=== PATIENT | female | born 1965 | race African-American/Black ===

== ENCOUNTER 2016-12-01 20:32 | Emergency (ER) | payer OTHER ==
[~2016-12-01] VITALS: Ht 170.2 cm; Wt 135.2 kg
[~2016-12-01 20:32] MED LIST: AMOXICILLIN500 MG ORAL; IBUPROFEN600 MG ORAL; MEDROL DOSEPAK4 MG ORAL; NORCO 5-325 TA1 EACH ORAL; PERCOCET 5-3251 EACH ORAL; PERIDEX 0.12% O16 OZ ORAL; [UNRECOGNIZED DRUG - REMARK]
[2016-12-01 21:12] VITALS: BP 196/86
[2016-12-01] MEDS ORDERED: HYDROmorphone 1mg/ml Carpuject IM ONE (21:15)
--- NOTE | 2016-12-01 21:18 | Emergency Room Report ---
History of Present Illness General Chief Complaint: General Complaint Source: Patient Present Illness HPI Is a 51-year-old female with history hypertension. She was driving here from the dentist office because I blood pressure. She is currently on Norvasc 5 mg a day. This was switched recently about 2 months ago because she cannot tolerate the other medication. She had an infected right upper wisdom tooth. Prior to tooth extraction blood pressure systolic was 161. After the extraction her blood pressure went up to 200. She complaining of pain. Denies any fever chills denies any nausea vomiting. No headache. No vision changes. The dentist wanted to call 911 but she refused. The executive secretary brought her here. Allergies: Coded Allergies: No Known Allergies (Unverified , 01/15/14) Patient History Past Medical History: see triage record, old chart reviewed, HTN Past Surgical History: other Pertinent Family History: none Social History: Denies: smoking Now: No Immunizations: other Reviewed Nursing Documentation: PMH: Agreed, PSxH: Agreed Nursing Documentation-PMH Hx Hypertension: Yes Review of Systems Eye: Denies: eye pain, blurred vision ENT: Denies: ear pain, nose congestion, throat swelling Respiratory: Denies: cough, shortness of breath Cardiovascular: Denies: chest pain, palpitations Gastrointestinal: Denies: abdominal pain, diarrhea, nausea, vomiting Musculoskeletal: Denies: back pain, joint pain Skin: Denies: rash Neurological: Denies: headache, numbness Endocrine: Denies: increased thirst, increased urine Hematologic/Lymphatic: Denies: easy bruising All Other Systems: negative except mentioned in HPI Physical Exam Vital Signs Date Time Temp Pulse Resp B/P (MAP) Pulse Ox O2 Delivery O2 Flow Rate FiO2 12/01/16 20:59 98.8 88 16 196/120 99 Room Air vitals with hypertension Sp02 EP Interpretation: reviewed, normal General Appearance: well appearing, no apparent distress, alert Head: normocephalic, atraumatic Eyes: bilateral eye PERRL, bilateral eye EOMI ENT: hearing grossly normal, normal pharynx Neck: full range of motion, supple, no meningismus Respiratory: chest non-tender, lungs clear, normal breath sounds Cardiovascular #1: regular rate, rhythm, no murmur Gastrointestinal: normal bowel sounds, non tender, no mass, no organomegaly, no bruit, non-distended Musculoskeletal: back normal, gait/station normal, normal range of motion Psychiatric: mood/affect normal Skin: warm/dry Medical Decision Making Diagnostic Impression: Primary Impression: Hypertension Qualified Codes: I10 - Essential (primary) hypertension Additional Impression: Morbid obesity with BMI of 45.0-49.9, adult ER Course Patient was high blood pressure. No evidence of endorgan damage. We'll discharge home. I will increase her Norvasc to 10 mg a day. Last Vital Signs Date Time Temp Pulse Resp B/P (MAP) Pulse Ox O2 Delivery O2 Flow Rate FiO2 12/01/16 21:12 196/86 12/01/16 20:59 98.8 88 16 99 Room Air Status: improved Disposition: HOME, SELF-CARE Condition: Stable Scripts Amlodipine Besylate (Norvasc) 10 Mg Tablet 10 MG ORAL DAILY, #30 TAB Prov: YULIANA PAGAN M.D. 12/01/16 Additional Instructions: Followup your doctor in a week for recheck on your blood pressure. Return if symptom worsen. YULIANA PAGAN M.D. Dec 01, 2016 21:18
[2016-12-01] MEDS ORDERED: NORVASC10 MG ORAL (22:11)
[2016-12-01 22:40] VITALS: BP 186/96
== END 2016-12-01 22:40 | disposition home or self-care (01) ==
LOC: EMR 21:22
DX: I10 Essential (primary) hypertension (principal); E66.01 Morbid (severe) obesity due to excess calories
CPT/HCPCS: 96372; 99283; J1170

== ENCOUNTER 2017-05-01 11:23 | Emergency (ER) | payer OTHER ==
[~2017-05-01] VITALS: Ht 170.2 cm; Wt 126.6 kg
[~2017-05-01 11:23] MED LIST changes: +NORVASC10 MG ORAL
[2017-05-01] MEDS ORDERED: LORazepam Inj 2mg/ml 1ml IV ONE (11:45)
[2017-05-01] MEDS ORDERED: Morphine Sulfate 4mg/ml Inj IVP ONE (11:45)
[2017-05-01 12:00] VITALS: BP 150/90
[2017-05-01 12:06] LABS: BASOPHILS % (AUTO) 0.8 % (0.0-2.0); EOSINOPHILS % (AUTO) 1.9 % (0.0-3.0); HEMATOCRIT 32.1 % (37.0-47.0); HEMOGLOBIN 9.2 G/DL (12.0-16.0); LYMPHOCYTES % (AUTO) 17.7 % (20.0-45.0); MEAN CORPUSCULAR VOLUME 77 FL (80-99); MONOCYTES % (AUTO) 6.7 % (1.0-10.0); PLATELET COUNT 263 K/UL (150-450); RED BLOOD COUNT 4.17 M/UL (4.20-5.40); RED CELL DISTRIBUTION WIDTH 19.3 % (11.6-14.8); WHITE BLOOD COUNT 10.7 K/UL (4.8-10.8)
[2017-05-01 12:22] LABS: ANION GAP 12 mmol/L (5-15); BLOOD UREA NITROGEN 7 mg/dL (7-18); CALCIUM 8.9 MG/DL (8.5-10.1); CARBON DIOXIDE 23 MMOL/L (21-32); CHLORIDE 106 MMOL/L (98-107); CREATININE 0.9 MG/DL (0.55-1.30); POTASSIUM 3.6 MMOL/L (3.5-5.1); SODIUM 140 MMOL/L (136-145)
[2017-05-01 12:25] LABS: INR 0.9 (0.9-1.1)
[2017-05-01 12:33] LABS: ALANINE AMINOTRANSFERASE 16 U/L (12-78); ALBUMIN 3.1 G/DL (3.4-5.0); ALBUMIN/GLOBULIN RATIO 0.8 (1.0-2.7); ALKALINE PHOSPHATASE 54 U/L (46-116); ASPARTATE AMINO TRANSFERASE 13 U/L (15-37); BILIRUBIN,TOTAL 0.5 MG/DL (0.2-1.0); CREATINE KINASE 161 U/L (26-308)
--- NOTE | 2017-05-01 13:57 | Emergency Room Report ---
History of Present Illness General Chief Complaint: Chest Pain Source: Patient, Friend Present Illness HPI The patient presents with substernal chest pressure. Started this morning. Woke her up at 4 AM. This has been severe. She had taken sudafed before. Then she applied Vicks Vaporub and then started to vomit. No coffee grounds or blood. Pressure in her chest has persisted. She was treated recently for vertigo. She was improved with meclizine. She has some nausea associated with that. On Sunday she had some flank pain and treated herself with muscle relaxant. There's been no anti-inflammatories used she has problems with bleeding from those. The patient has had no cardiac workup in the past. Sore throat. Risk factors: HTN, no DM, smoke, fam hx. No prior asthma, but has been coughing, non-productive. Allergies: Coded Allergies: No Known Allergies (Unverified , 01/15/14) Patient History Past Medical History: see triage record Social History: Denies: smoking, drug use Social History Narrative with friend Reviewed Nursing Documentation: PMH: Agreed, PSxH: Agreed Nursing Documentation-PMH Hx Hypertension: Yes Review of Systems All Other Systems: negative except mentioned in HPI Physical Exam Vital Signs Date Time Temp Pulse Resp B/P (MAP) Pulse Ox O2 Delivery O2 Flow Rate FiO2 05/01/17 11:25 98.1 109 20 182/112 99 Room Air Sp02 EP Interpretation: reviewed, normal General Appearance: well appearing, GCS 15, mild distress, obese Head: normocephalic, atraumatic Eyes: bilateral eye normal inspection, bilateral eye PERRL ENT: TMs + canals normal, moist mucus membranes, pharyngeal erythema Neck: supple Respiratory: lungs clear, normal breath sounds Cardiovascular #1: regular rate, rhythm Cardiovascular #2: 2+ radial (R) Gastrointestinal: normal inspection, normal bowel sounds, non tender, no mass, non-distended, overweight Musculoskeletal: back normal, gait/station normal, normal range of motion, no calf tenderness Neurologic: alert, oriented x3, grossly normal Psychiatric: anxious Skin: normal inspection, warm/dry Medical Decision Making Diagnostic Impression: Primary Impression: Chest pain Qualified Codes: R07.9 - Chest pain, unspecified Additional Impressions: Vertigo Viral URI ER Course Patient presents with substernal chest pressure. Differential includes acute myocardial infarction acute coronary syndrome, GERD, gastritis, chest wall pain amongst others. Evaluation with EKG, chest x-ray and labs. The patient be treated with aspirin, Pepcid and morphine. Based on exam and VS, PE doubted. EKG shows no acute change and no injury. Chest x-ray shows no infiltrate. Labs are significant for negative troponin. The patient is greatly improved with treatment, however because of the nature of the pain she needs to be admitted for repeat troponin levels and rule out for acute coronary syndrome. Calling Dr. Bermudez. Accepts patient in transfer. Patient with post tussive wheezes. Albuterol given with some improvement. Serious but stable for transfer. Laboratory Tests Test 05/01/17 11:51 White Blood Count 10.7 K/UL (4.8-10.8) Red Blood Count 4.17 M/UL (4.20-5.40) L Hemoglobin 9.2 G/DL (12.0-16.0) L Hematocrit 32.1 % (37.0-47.0) L Mean Corpuscular Volume 77 FL (80-99) L Mean Corpuscular Hemoglobin 22.2 PG (27.0-31.0) L Mean Corpuscular Hemoglobin Concent 28.8 G/DL (32.0-36.0) L Red Cell Distribution Width 19.3 % (11.6-14.8) H Platelet Count 263 K/UL (150-450) Mean Platelet Volume 6.7 FL (6.5-10.1) Neutrophils (%) (Auto) 73.0 % (45.0-75.0) Lymphocytes (%) (Auto) 17.7 % (20.0-45.0) L Monocytes (%) (Auto) 6.7 % (1.0-10.0) Eosinophils (%) (Auto) 1.9 % (0.0-3.0) Basophils (%) (Auto) 0.8 % (0.0-2.0) Prothrombin Time 9.8 SEC (9.30-11.50) Prothrombin Time INR 0.9 (0.9-1.1) PTT 28 SEC (23-33) Sodium Level 140 MMOL/L (136-145) Potassium Level 3.6 MMOL/L (3.5-5.1) Chloride Level 106 MMOL/L (98-107) Carbon Dioxide Level 23 MMOL/L (21-32) Anion Gap 12 mmol/L (5-15) Blood Urea Nitrogen 7 mg/dL (7-18) Creatinine 0.9 MG/DL (0.55-1.30) Estimate Glomerular Filtration Rate > 60 mL/min (>60) Glucose Level 112 MG/DL (74-106) H Calcium Level 8.9 MG/DL (8.5-10.1) Total Bilirubin 0.5 MG/DL (0.2-1.0) Aspartate Amino Transferase (AST) 13 U/L (15-37) L Alanine Aminotransferase (ALT) 16 U/L (12-78) Alkaline Phosphatase 54 U/L (46-116) Total Creatine Kinase 161 U/L (26-308) Troponin I 0.000 ng/mL (0.000-0.056) Pro-B-Type Natriuretic Peptide 72 pg/mL (0-125) Total Protein 7.2 G/DL (6.4-8.2) Albumin 3.1 G/DL (3.4-5.0) L Globulin 4.1 g/dL Albumin/Globulin Ratio 0.8 (1.0-2.7) L EKG Diagnostic Results Rate: normal Rhythm: NSR ST Segments: no acute changes Rhythm Strip Diag. Results EP Interpretation: yes Rhythm: NSR, no PVC's, no ectopy Chest X-Ray Diagnostic Results Chest X-Ray Diagnostic Results : Chest X-Ray Ordered: Yes # of Views/Limited/Complete: 1 View Indication: Chest Pain EP Interpretation: Yes Interpretation: no consolidation, no effusion, no pneumothorax, other - inc cor Impression: Other Electronically Signed by: Electronically signed by Bryan Vaca MD Last Vital Signs Date Time Temp Pulse Resp B/P (MAP) Pulse Ox O2 Delivery O2 Flow Rate FiO2 05/01/17 18:30 86 16 143/86 98 Room Air 05/01/17 18:29 98.7 Status: improved Disposition: XFER SHT-TRM HOSP Condition: Serious - but stable for transfer Referrals: [facility]ERR[facility] (PCP) Bryan Vaca M.D. May 01, 2017 13:57
[2017-05-01 14:00] VITALS: BP 147/92
[2017-05-01] MEDS ORDERED: Albuterol ud Inhalation HHN ONE (14:00)
--- NOTE | 2017-05-01 14:15 | Diagnostic Imaging Report ---
Indication: Chest pain, shortness of breath Technique: One view of the chest Comparison: none Findings: Lungs and pleural spaces are clear. The heart is enlarged. The aorta is tortuous Impression: Cardiomegaly No acute process
[2017-05-01 15:53] VITALS: BP 147/92
[2017-05-01 16:15] LABS: APPEARANCE,URINE CLEAR; BILIRUBIN, URINE NEGATIVE (NEGATIVE); GLUCOSE, URINE (UA) NEGATIVE (NEGATIVE); KETONES,URINE NEGATIVE (NEGATIVE); LEUKOCYTE ESTERASE ,URINE NEGATIVE (NEGATIVE); NITRITE,URINE NEGATIVE (NEGATIVE); PH,URINE 6 (4.5-8.0); PROTEIN,URINE NEGATIVE (NEGATIVE); UROBILINOGEN,URINE NORMAL MG/DL (0.0-1.0)
[2017-05-01 16:16] LABS: COLOR,URINE YELLOW
[2017-05-01 18:29] VITALS: BP 143/86
[2017-05-01 18:30] VITALS: BP 143/86
[2017-05-01] MEDS ORDERED: MECLIZINE HCL25 MG ORAL (18:39)
[2017-05-01] MEDS ORDERED: VITAMIN D250000 UNI1 ORAL (18:39)
[2017-05-01] MEDS ORDERED: CYCLOBENZAPRINE10 MG ORAL (18:39)
[2017-05-01] MEDS ORDERED: VERAPAMIL ER120 MG PO (18:39)
[2017-05-01] MEDS ORDERED: FLUTICASONE PRO16 G1 NASAL (18:39)
[2017-05-01] MEDS ORDERED: ZYRTEC10 MG ORAL (18:39)
[2017-05-01] MEDS ORDERED: DOCUSATE SODIU250 MG ORAL (18:39)
[2017-05-01] MEDS ORDERED: ACETAMINOPHEN-1 EAC1 ORAL (18:39)
[2017-05-01] MEDS ORDERED: LISINOPRIL20 MG ORAL (18:39)
[2017-05-01] MEDS ORDERED: PSEUDOEPHEDRINE30 MG PO (18:39)
[2017-05-01] MEDS ORDERED: FERROUS SULFAT325 MG ORAL (18:39)
--- NOTE | 2017-05-02 19:02 | Cardiology Report ---
APPROVED REPORT EKG Measurement Heart [id number] Normal sinus rhythm Normal ECG
== END 2017-05-01 18:33 | disposition short-term general hospital (02) ==
LOC: EMR 12:18
DX: R07.9 Chest pain, unspecified (principal); R42 Dizziness and giddiness; J06.9 Acute upper respiratory infection, unspecified; B97.89 Other viral agents as the cause of diseases classified elsewhere; I10 Essential (primary) hypertension
CPT/HCPCS: 36415; 71045; 80053; 80307; 81003; 82550; 83880; 84484; 85025; 85610; 85730; 93005; 94640; 94664; 96374; 96375; 99285; J2270; J2405; S0028

== ENCOUNTER 2018-12-30 18:36 | Emergency (ER) | payer OTHER ==
[~2018-12-30] VITALS: Ht 167.6 cm; Wt 122.5 kg
[~2018-12-30 18:36] MED LIST changes: +ACETAMINOPHEN-1 EAC1 ORAL; +CYCLOBENZAPRINE10 MG ORAL; +DOCUSATE SODIU250 MG ORAL; +FERROUS SULFAT325 MG ORAL; +FLUTICASONE PRO16 G1 NASAL; +LISINOPRIL20 MG ORAL; +MECLIZINE HCL25 MG ORAL; +PSEUDOEPHEDRINE30 MG PO; +VERAPAMIL ER120 MG PO; +VITAMIN D250000 UNI1 ORAL; +ZYRTEC10 MG ORAL
[2018-12-30] MEDS ORDERED: UNOBMED (18:50)
--- NOTE | 2018-12-30 19:37 | NUR ---
ED Nurse Note: REPORT RECEIVED FROM JENELLE NAIR. PT LAYING PEACEFULLY IN BED IN NAD. ULTRASOUND COMPLETED - NEGATIVE FOR DVT.
--- NOTE | 2018-12-30 19:41 | NUR ---
ED Nurse Note: BLOOD DRAW ORDERS TO BE CANCELLED PER KETURAH COYLE.
--- NOTE | 2018-12-30 19:59 | Emergency Room Report ---
History of Present Illness General Chief Complaint: Multiple Trauma/Fall Source: Patient Present Illness HPI Obesity and hypertension currently controlled here requesting ultrasound of the left lower extremity and x-ray of left knee as it was requested by the doctor who saw her in urgent care earlier today. Patient reports that she fell over a week ago and shows a picture of her left knee being swollen and bruised. However the bruising is subsiding now and spreading. Patient denies any calf tenderness or cramping. Denies chest pain, shortness of breath, palpitation, dizziness and headache. Denies history of having DVT or pulmonary embolus. Patient denies any history of recent lower extremity surgery or being immobile. Patient is rating pain 3 out of 10 without radiation denying tingling and numbness. Homans sign is negative, not as noted. Allergies: Coded Allergies: No Known Allergies (Unverified , 01/15/14) Patient History Past Medical History: see triage record Past Surgical History: unable to obtain Pertinent Family History: none Last Menstrual Period: 11/09/18 Now: No Immunizations: UTD Reviewed Nursing Documentation: PMH: Agreed; PSxH: Agreed Nursing Documentation-PMH Past Medical History: No History, Except For Hx Hypertension: Yes Review of Systems All Other Systems: negative except mentioned in HPI Physical Exam Vital Signs Date Time Temp Pulse Resp B/P (MAP) Pulse Ox O2 Delivery O2 Flow Rate FiO2 12/30/18 18:46 98.4 78 16 143/88 (106) 96 Room Air Sp02 EP Interpretation: reviewed, normal General Appearance: no apparent distress, alert, GCS 15, non-toxic Head: normocephalic, atraumatic Eyes: bilateral eye normal inspection, bilateral eye PERRL ENT: hearing grossly normal, normal pharynx, no angioedema, normal voice Neck: full range of motion, supple/symm/no masses Respiratory: chest non-tender, lungs clear, normal breath sounds, no rhonchi, no wheezing, speaking full sentences Cardiovascular #1: normal inspection, normal peripheral pulses, regular rate, rhythm, no edema, no murmur Cardiovascular #2: 2+ dorsalis pedis (R), 2+ dorsalis pedis (L) Gastrointestinal: normal bowel sounds, non tender, soft, non-distended, no guarding, no rebound Rectal: deferred Genitourinary: normal inspection, no CVA tenderness Musculoskeletal: back normal, gait/station normal, normal range of motion, non- tender, no calf tenderness, Parth's Sign negative Neurologic: alert, oriented x3, responsive, motor strength/tone normal, sensory intact, speech normal Psychiatric: judgement/insight normal, memory normal, mood/affect normal, no suicidal/homicidal ideation Skin: no rash, Ecchymosis/Bruising - Left knee Lymphatic: no adenopathy Procedures Splinting Splinting : Consent: Verbal Location: Left knee Pre-Made Type: MICHEAL wrap Pre-Proc Neuro Vasc Exam: normal Post-Proc Neuro Vasc Exam: normal Patient Tolerated: Well Complications: None Medical Decision Making PA Attestation All my diagnosis and treatment plans were reviewed ad discussed with my supervising physician Dr. Marroquin Diagnostic Impression: Primary Impression: Contusion of left knee Additional Impression: Contusion of left leg ER Course Obesity and hypertension currently controlled here requesting ultrasound of the left lower extremity and x-ray of left knee as it was requested by the doctor who saw her in urgent care earlier today. Patient reports that she fell over a week ago and shows a picture of her left knee being swollen and bruised. However the bruising is subsiding now and spreading. Patient denies any calf tenderness or cramping. Denies chest pain, shortness of breath, palpitation, dizziness and headache. Denies history of having DVT or pulmonary embolus. Patient denies any history of recent lower extremity surgery or being immobile. Patient is rating pain 3 out of 10 without radiation denying tingling and numbness. Homans sign is negative, not as noted. Ddx considered but are not limited to: Knee sprain, strain, fracture, contusion , meniscus tear injury Vital signs: are WNL, pt. is afebrile H&PE are most consistent with: Knee contusion without any signs of DVT ORDERS: Knee x-ray, venous duplex ultrasound extremity, ibuprofen, Voltaren gel ER intervention: Micheal wrap DISCHARGE: At this time pt. is stable for d/c to home. Will provide printed patient care instructions, and any necessary prescriptions. Care plan and follow up instructions have been discussed with the patient prior to discharge. No signs of DVT noted patient to follow-up with primary care provider worsening symptoms return to the emergency room no blood work needed at this time as patient has no deep vein thrombosis CT/MRI/US Diagnostic Results CT/MRI/US Diagnostic Results : Imaging Test Ordered: venous duplex LLE Impression no DVT Last Vital Signs Date Time Temp Pulse Resp B/P (MAP) Pulse Ox O2 Delivery O2 Flow Rate FiO2 12/30/18 18:46 98.4 78 16 143/88 (106) 96 Room Air Disposition: HOME, SELF-CARE Condition: Stable Patient Instructions: Contusion, [id number], Knee Pain Additional Instructions: Take medication as directed follow with your primary care provider at this time no signs of deep vein thrombosis noted symptoms return to the emergency room however is highly advised to follow-up with your primary care physician Db Naranjo Dec 30, 2018 19:59
[2018-12-30] MEDS ORDERED: IBUPROFEN600 MG ORAL (20:01)
[2018-12-30] MEDS ORDERED: VOLTAREN100 G1 TP (20:01)
--- NOTE | 2018-12-30 20:03 | NUR ---
ED Nurse Note: PT LAYING PEACEFULLY IN BED IN NAD. AOX4. PRESCRIPTIONS AND DISCHARGE PAPERWORK EXPLAINED TO PT. PT VERBALIZES UNDERSTANDING AND ALL QUESTIONS ANSWERED. PRESCRIPTIONS AND DISCHARGE PAPERWORK GIVEN TO PT AND ID WRISTBAND REMOVED. PT WALKED OUT OF ER WITH STEADY GAIT AND ALL BELONGINGS.
[2018-12-30 20:04] VITALS: BP 138/82
[2018-12-30 20:06] VITALS: BP 138/82
--- NOTE | 2018-12-31 14:23 | Diagnostic Imaging Report ---
Indication: Pain, trauma, status post fall Technique: 3 views of the left knee Comparison: None Findings: No acute fractures. No dislocations. Degenerative proliferative changes are noted. No suprapatellar effusion. Impression: Degenerative changes as described. No acute bony trauma
--- NOTE | 2018-12-31 14:25 | Diagnostic Imaging Report ---
Indication: Left leg pain Technique: Grayscale and duplex images of the left lower extremity veins Comparison: none Findings: Grayscale and duplex images demonstrate no evidence of intraluminal thrombus. Normal phasic Doppler waveforms, demonstrating normal augmentation response and no evidence of valvular insufficiency. Normal compressibility Impression: Negative for left lower extremity deep venous thrombosis This agrees with the preliminary interpretation provided overnight by Dr. Sebastian
== END 2018-12-30 20:08 | disposition home or self-care (01) ==
LOC: EMR 20:00
DX: S80.02XA Contusion of left knee, initial encounter (principal); S80.12XA Contusion of left lower leg, initial encounter; I10 Essential (primary) hypertension; W18.30XA Fall on same level, unspecified, initial encounter; Y92.9 Unspecified place or not applicable
CPT/HCPCS: 73562; 93971; Z7502; 99284